=== PATIENT | female | born 1980 | race Caucasian/White ===

== ENCOUNTER 2017-04-28 15:24 | Emergency (ER) | payer MEDICAID ==
[~2017-04-28] VITALS: Ht 160 cm; Wt 64.9 kg
[~2017-04-28 15:24] MED LIST: KLONOPIN1 MG PO; SEROQUEL100 MG PO; ULTRAM50 MG PO
== END 2017-04-28 17:10 | disposition short-term general hospital (02) ==
LOC: ER 15:24
DX: F19.939 Other psychoactive substance use, unspecified with withdrawal, unspecified (principal); F32.9 Major depressive disorder, single episode, unspecified; F41.9 Anxiety disorder, unspecified; G62.9 Polyneuropathy, unspecified; F17.210 Nicotine dependence, cigarettes, uncomplicated; Z90.49 Acquired absence of other specified parts of digestive tract; Z98.890 Other specified postprocedural states
CPT/HCPCS: G0477